=== PATIENT | female | born 1965 | race Caucasian/White ===

== ENCOUNTER 2018-03-16 15:08 | Emergency (ER) | payer OTHER ==
[~2018-03-16] VITALS: Ht 165.1 cm; Wt 110.0 kg
[~2018-03-16 15:08] MED LIST: CLON0.1T PO; DESV100T PO; FLUT50DI NAS; FURO20TA3 PO; HYDR12.53 PO; LEVO100T PO; LEVO5TAB2 PO; LOSA100T2 PO; LOSA25TA2 PO; METH750T2 PO; MONT10TA6 PO; PANT40TA5 PO; POLY17PO5 PO; POTA20TA91 PO; SIMV10TA PO; SIMV20TA3 PO; TOPI200T25 PO; ZOLP10TA PO; [UNRECOGNIZED DRUG - REMARK]
[2018-03-16] MEDS ORDERED: SODIUM CHLORIDE 0.9% 1,000ML IVBOLUS ONE (15:30)
[2018-03-16] MEDS ORDERED: FAMOTIDINE 20 MG/2 ML IVP ONE (15:30)
[2018-03-16] MEDS ORDERED: SODIUM CHLORIDE FLUSH 10ML SYR IVF ONE (15:30)
[2018-03-16] MEDS ORDERED: ONDANSETRON 2MG/ML, 2ML IVPush ONE ×2 (15:30→18:30)
[2018-03-16 15:42] LABS: BASOPHILS # (AUTO) 0.03 x10^3/uL (0-0.1); BASOPHILS % (AUTO) 0 % (0-1); EOSINOPHILS % (AUTO) 0 % (1-7); LYMPHOCYTES # (AUTO) 1.39 x10^3/uL (1-3.4); LYMPHOCYTES % (AUTO) 18 % (22-44); MD NO; MEAN CORPUSCULAR HEMOGLOBIN 30.5 pg (27.0-34.8); MEAN CORPUSCULAR HGB CONC 33.9 g/dL (32.4-35.8); MONOCYTES # (AUTO) 0.26 x10^3/uL (0.2-0.8); MONOCYTES % (AUTO) 3 % (2-9); NEUTROPHILS # (AUTO) 5.98 x10^3/uL (1.8-6.8); NEUTROPHILS % (AUTO) 78 % (42-75); PLATELET COUNT 320 x10^3/uL (130-400); RED BLOOD COUNT 5.43 x10^6/uL (3.82-5.3); RED CELL DISTRIBUTION WIDTH 13.5 % (9.6-15.2)
[2018-03-16 15:56] LABS: TROPONIN I < 0.015 ng/mL (0.000-0.045)
[2018-03-16 15:59] LABS: ALANINE AMINOTRANSFERASE 24 U/L (12-78); ALBUMIN 4.3 g/dL (3.4-5.0); ANION GAP 11 mmol/L (5-15); CALCIUM 10.1 mg/dL (8.5-10.1); CHLORIDE 98 mmol/L (98-107); CREATININE 0.85 mg/dL (0.55-1.02)
[2018-03-16 16:01] LABS: ALKALINE PHOSPHATASE 96 U/L (45-117); BILIRUBIN,TOTAL 0.5 mg/dL (0.2-1.0); TOTAL PROTEIN 8.6 g/dL (6.4-8.2)
[2018-03-16] MEDS ORDERED: ONDANSETRON 2MG/ML, 2ML ONE ×2 (16:05→18:38)
[2018-03-16] MEDS ORDERED: FAMOTIDINE 20 MG/2 ML ONE (16:05)
[2018-03-16] MEDS ORDERED: MORPHINE SULFATE 4 MG/ML, 1ML IVPush PRN (16:30)
[2018-03-16] MEDS ORDERED: LORazepam 2 MG/ML, 1ML IVPush ONE (16:30)
[2018-03-16] MEDS ORDERED: MORPHINE SULFATE 4 MG/ML, 1ML ONE (17:33)
[2018-03-16] MEDS ORDERED: LORazepam 2 MG/ML, 1ML ONE (17:34)
[2018-03-16] MEDS ORDERED: OMNIPAQUE 350 MG/ML, 100ML BOTTLE ONE (17:35)
[2018-03-16] MEDS ORDERED: LOSARTAN 50MG TABLET PO STA (18:15)
[2018-03-16 18:46] LABS: MICROSCOPIC NOT IND
[2018-03-16 18:58] LABS: CULTURE INDICATED? NO
[2018-03-16 19:42] VITALS: BP 146/78
== END 2018-03-16 19:53 | disposition home or self-care (01) ==
LOC: ED 17:32
DX: K80.20 Calculus of gallbladder without cholecystitis without obstruction (principal); F32.9 Major depressive disorder, single episode, unspecified; F41.9 Anxiety disorder, unspecified; I10 Essential (primary) hypertension; E78.00 Pure hypercholesterolemia, unspecified; E03.9 Hypothyroidism, unspecified; E66.01 Morbid (severe) obesity due to excess calories; Z68.41 Body mass index [BMI] 40.0-44.9, adult
CPT/HCPCS: 36415; 74177; 76700; 80053; 81003; 83690; 84484; 85025; 93005; 96361; 96374; 96375; 96376; 99285; J2060; J2405; J3490; J7030; Q9967

== ENCOUNTER 2020-05-13 13:31 | Emergency (ER) | payer SELFPAY ==
[~2020-05-13] VITALS: Ht 165.1 cm; Wt 103.4 kg
[~2020-05-13 13:31] MED LIST changes: -CLON0.1T PO; +CLON0.1T22 PO; +HYDR12.517 PO; -HYDR12.53 PO; -PANT40TA5 PO; +PANT40TA6 PO; +SIMV20TA19 PO; -SIMV20TA3 PO
--- NOTE | 2020-05-13 14:04 | NUR ---
PT BIB VIA POV. PER PT SHE IS HERE FOR COUGH, ABD PAIN, AND VOMITTING. SHE STATES HER ABD PAIN IS A 6/10 RIGHT NOW. PT RESTING IN [facility], AT BEDSIDE, MARYN AT THIS TIME, WILL CONTINUE TO MONITOR.
[2020-05-13] MEDS ORDERED: FAMOTIDINE 20 MG/2 ML ONE (14:20)
[2020-05-13] MEDS ORDERED: ONDANSETRON 2MG/ML, 2ML ONE (14:20)
[2020-05-13] MEDS ORDERED: MORPHINE SULFATE 4 MG/ML, 1ML ONE (14:20)
[2020-05-13] MEDS ORDERED: MORPHINE SULFATE 4 MG/ML, 1ML IVPush PRN (14:30)
[2020-05-13] MEDS ORDERED: FAMOTIDINE 20 MG/2 ML IV ONE (14:30)
[2020-05-13] MEDS ORDERED: SODIUM CHLORIDE 0.9% 1,000ML IVBOLUS ONE ×2 (14:30→17:00)
[2020-05-13] MEDS ORDERED: ONDANSETRON 2MG/ML, 2ML IVPush ONE (14:30)
[2020-05-13 14:41] LABS: BASOPHILS % (AUTO) 0 % (0-1); EOSINOPHILS % (AUTO) 0 % (1-7); LYMPHOCYTES % (AUTO) 14 % (22-44); MEAN CORPUSCULAR HEMOGLOBIN 30.6 pg (27.0-34.8); MEAN CORPUSCULAR HGB CONC 34.1 g/dL (32.4-35.8); MEAN PLATELET VOLUME 7.4 fL (7.4-10.4); MONOCYTES % (AUTO) 6 % (2-9); NEUTROPHILS % (AUTO) 79 % (42-75); PLATELET COUNT 323 x10^3/uL (130-400); RED BLOOD COUNT 5.31 x10^6/uL (3.82-5.3); RED CELL DISTRIBUTION WIDTH 13.8 % (9.6-15.2)
[2020-05-13 14:42] LABS: MD NO
[2020-05-13 14:52] LABS: ALANINE AMINOTRANSFERASE 20 U/L (12-78); ALBUMIN 3.8 g/dL (3.4-5.0); ANION GAP 7 mmol/L (5-15); CALCIUM 9.4 mg/dL (8.5-10.1); CHLORIDE 102 mmol/L (98-107); CREATININE 0.99 mg/dL (0.55-1.02)
[2020-05-13 14:54] LABS: ALKALINE PHOSPHATASE 95 U/L (45-117); BILIRUBIN,TOTAL 0.5 mg/dL (0.2-1.0); TOTAL PROTEIN 7.7 g/dL (6.4-8.2)
[2020-05-13 17:23] VITALS: BP 156/74
[2020-05-13 18:07] LABS: MICROSCOPIC AUTO
== END 2020-05-13 18:58 | disposition home or self-care (01) ==
LOC: ED 15:15
DX: K80.20 Calculus of gallbladder without cholecystitis without obstruction (principal); R10.13 Epigastric pain; R11.2 Nausea with vomiting, unspecified; E03.9 Hypothyroidism, unspecified; E78.00 Pure hypercholesterolemia, unspecified; Z90.89 Acquired absence of other organs; Z88.0 Allergy status to penicillin; Z88.9 Allergy status to unspecified drugs, medicaments and biological substances; J44.9 Chronic obstructive pulmonary disease, unspecified; F17.200 Nicotine dependence, unspecified, uncomplicated
CPT/HCPCS: 36415; 76700; 80053; 81001; 83690; 85025; 93005; 96361; 96374; 96375; 99285; J2270; J2405; J7030